=== PATIENT | female | born 1955 ===

== ENCOUNTER 2017-12-27 07:30 | Day surgery (SDC) | payer OTHER ==
[~2017-12-27 07:30] MED LIST: HYOSCYAMINE0.125 M1 SL; INTESTINEX680 MG PO; Mylicon 125MG PO; OXYC1TAB9 PO; SYNTHROID50 MCG PO
== END 2017-12-27 13:04 | disposition home or self-care (01) ==
LOC: AMB-ENDOS 07:30 → CIR.AMB 13:45
DX: D12.3 Benign neoplasm of transverse colon (principal)